=== PATIENT | female | born 1995 ===

== ENCOUNTER 2021-03-06 06:37 | Inpatient (IN) | payer OTHER ==
[~2021-03-06] VITALS: Ht 160 cm; Wt 2.3 kg
[2021-03-06] MEDS ORDERED: LEVOTHYROXINE25 MCG (07:21)
[2021-03-06] MEDS ORDERED: PRENATAL 19 CH1 EACH (07:21)
[2021-03-08] MEDS ORDERED: SYNTHROID175 MCG (11:10)
== END 2021-03-10 17:45 | disposition home or self-care (01) | DRG 786 ==
LOC: LDR 06:37 → OB/GYN 06:37 → O/R 14:25 → OB/GYN 14:55
PROVIDERS: ADMIT Obstetrics & Gynecology Obstetrics; ATTEND Obstetrics & Gynecology Obstetrics
PROC: 4A1HXFZ Monitoring of Products of Conception, Cardiac Rhythm, External Approach (ICD-10-PCS; 2021-03-06)
PROC: 10D00Z1 Extraction of Products of Conception, Low, Open Approach (ICD-10-PCS; principal; 2021-03-06 13:15)
DX: O42.013 Preterm premature rupture of membranes, onset of labor within 24 hours of rupture, third trimester (principal); O60.14X2 Preterm labor third trimester with preterm delivery third trimester, fetus 2; O60.14X1 Preterm labor third trimester with preterm delivery third trimester, fetus 1; O64.1XX1 Obstructed labor due to breech presentation, fetus 1; O64.8XX2 Obstructed labor due to other malposition and malpresentation, fetus 2; O30.043 Twin pregnancy, dichorionic/diamniotic, third trimester; Z3A.34 34 weeks gestation of pregnancy; Z37.2 Twins, both liveborn